=== PATIENT | male | born 1930 | race Caucasian/White ===

== ENCOUNTER → 2017-03-19 | Outpatient (CLI) | payer MEDICARE ==
[2016-08-15 03:00] VITALS: BP 109/51
[~2017-03-19] MED LIST: ACET325T9 PO; ALBU1.25 NEB; AMOX500C PO; ASPI-482 PO; ASPI81TA2 PO; ATOR20TA58 PO; BRIN8DRO OP; CIPR250T30 PO; CIPR500T94 PO; FLUT1DIS3 IH; HYDR-2666 PO; HYDR12.58 PO; IRBE75TA2 PO; METO25TA2 PO; METO25TA4 PO; MULT-246 PO; NAPR500T8 PO; OMEP20CA5 PO; SIMV80TA PO
--- NOTE | 2017-03-19 16:49 | RAD ---
Bilateral duplex carotid sonography History: Right carotid bruit. Comparison: Carotid Doppler 08/19/2010. Duplex sonography of the cervical portion of both carotid arteries was performed. Findings: Right side: Peak systolic flow velocity of the CCA is 76 cm/sec. Peak systolic flow velocity of the ICA is 129 cm/sec. The ICA/CCA ratio is 1.7. Peak end diastolic flow velocity of the ICA is 52 cm/sec. The peak systolic velocity of the ECA is 77 cm/sec. There is extensive calcified atherosclerotic plaquing involving the right common carotid artery extending into the internal and external carotid arteries. No convincing of vascularity is identified in the distal right internal carotid artery, although given the waveform the more proximal internal carotid artery, and it is thought unlikely to be occluded.. Left side: Peak systolic flow velocity of the CCA is 140 cm/sec. Peak systolic flow velocity of the ICA is 261 cm/sec. The ICA/CCA ratio is 1.87. Peak end diastolic flow velocity of the ICA is 10 cm/sec. Peak systolic flow velocity of the ECA is 1:30 cm/sec. Extensive calcified atherosclerotic plaquing is seen involving the entirety of the left carotid system. Vertebral arteries: Bilateral vertebral arteries demonstrate antegrade flow. Impression: 1. Extensive atherosclerotic plaquing is seen involving the right carotid system. By velocities, right internal carotid artery demonstrates moderate (50-69%) luminal diameter stenosis, although by grayscale imaging, stenosis may be greater than that. No convincing Doppler signal seen in the distal right internal carotid artery, although this may be artifact of shadowing plaque as the waveforms of the more proximal internal carotid artery suggest against distal occlusion. 2. Elevated velocity is seen in the left internal carotid artery corresponding to greater than 70% luminal diameter stenosis. A similar degree of stenosis was seen in the comparison study. 3. Confirmation stenosis could be made with CT angiography of the neck. Note: Stenosis calculations for Doppler studies are derived from validated velocity criteria which are known to correlate with NASCET methodology of determining stenosis.
== END | disposition home or self-care (01) ==
LOC: US 12:09
PROVIDERS: ATTEND Family Medicine
DX: G45.9 Transient cerebral ischemic attack, unspecified (principal); R09.89 Other specified symptoms and signs involving the circulatory and respiratory systems
CPT/HCPCS: 93880

== ENCOUNTER → 2017-04-28 | Day surgery (SDC) | payer MEDICARE ==
[~2017-04-28] VITALS: Ht 160 cm; Wt 85.3 kg
[~2017-04-28] MED LIST changes: +ASPI-630 PO; -ASPI81TA2 PO; +DEXT15DR5 EACHEYE; -HYDR-2666 PO; +HYDR-2758 PO; +HYDROmorphone 2 MG/ML VIAL IV PRN; +IV RINGERS,LACTATED 1000ML 1,000 ML IV SCH; +LIDOCAINE 1% 1 ML SYRINGE. ID PRN; +LIDOCAINE 2% PF Vial for OR 5 ML VIAL. ONE; +MORPHINE SULFATE 2 MG/ML DISP.SYRIN. IV PRN; +ONDANSETRON PF 4 MG/2 ML VIAL. IV PRN; +PROCHLORPERAZINE 10 MG/2 ML VIAL. IV PRN; +PROPOFOL 0 ML IV ONE; +fentaNYL PF VIAL 100 MCG/2 ML VIAL IV PRN; +fentaNYL PF VIAL 100 MCG/2 ML VIAL ONE
[2017-04-28 08:12] LABS: BILIRUBIN,URINE MODERATE (NEG); GLUCOSE,URINE NEGATIVE (NEG); NITRITE,URINE NEGATIVE (NEG); PROTEIN,URINE 100 mg/dL (NEG-TRACE); UROBILINOGEN,URINE 0.2 mg/dL (0.2 mg/dL)
[2017-04-28 08:15] VITALS: BP 117/74
[2017-04-28 08:28] LABS: BACTERIA,URINE MANY /HPF (0-FEW); RBC,URINE TNTC /HPF (0-2)
[2017-04-28 08:45] LABS: BASO # 0.1 x10^3/uL (0.0-0.2); BASO % 1 % (0-3); EOS % 3 % (0-3); HEMATOCRIT 34.2 % (39.0-53.0); LYMPH % 12 % (24-48); MEAN CORPUSCULAR HEMOGLOBIN 28 pg (25-35); MEAN CORPUSCULAR HGB CONC 32 g/dL (31-37); MEAN CORPUSCULAR VOLUME 87 fL (79-100); MONO % 6 % (0-9); NEUT % 78 % (31-73); PLATELET COUNT 283 x10^3/uL (140-400); RED BLOOD COUNT 3.93 x10^6/uL (4.30-5.70); RED CELL DISTRIBUTION WIDTH 15.2 % (11.5-14.5); WHITE BLOOD COUNT 8.6 x10^3/uL (4.0-11.0)
[2017-04-28 08:56] LABS: INR 1.2 (0.8-1.1); PROTHROMBIN TIME PATIENT 14.1 SEC (11.7-14.0)
--- NOTE | 2017-04-28 09:44 | PDOC ---
Provider Note Provider Note Urology: Procedure cancelled due to UTI MUNA HERNANDEZ DO Apr 28, 2017 09:44
[2017-04-28 09:45] LABS: CALCIUM 8.9 mg/dL (8.5-10.1); CREATININE 1.7 mg/dL (0.7-1.3); GFR 38.3; POTASSIUM 4.6 mmol/L (3.5-5.1)
== END | disposition home or self-care (01) ==
LOC: SURG 07:35
PROVIDERS: ATTEND Urology
DX: C67.9 Malignant neoplasm of bladder, unspecified (principal); Z53.8 Procedure and treatment not carried out for other reasons; N39.0 Urinary tract infection, site not specified; H40.9 Unspecified glaucoma; K21.9 Gastro-esophageal reflux disease without esophagitis; E78.00 Pure hypercholesterolemia, unspecified; I10 Essential (primary) hypertension; J44.9 Chronic obstructive pulmonary disease, unspecified; M19.90 Unspecified osteoarthritis, unspecified site; Z98.42 Cataract extraction status, left eye; Z98.41 Cataract extraction status, right eye; Z86.69 Personal history of other diseases of the nervous system and sense organs; Z87.442 Personal history of urinary calculi; Z79.01 Long term (current) use of anticoagulants
CPT/HCPCS: 36415; 80048; 81001; 85027; 85610; 85730; 87086; J0690; J2704; J3010

== ENCOUNTER 2017-08-01 00:41 | Emergency (ER) | payer MEDICARE ==
[~2017-08-01] VITALS: Ht 162.6 cm; Wt 88.5 kg
[~2017-08-01 00:41] MED LIST changes: -HYDROmorphone 2 MG/ML VIAL IV PRN; -IV RINGERS,LACTATED 1000ML 1,000 ML IV SCH; -LIDOCAINE 1% 1 ML SYRINGE. ID PRN; -LIDOCAINE 2% PF Vial for OR 5 ML VIAL. ONE; -MORPHINE SULFATE 2 MG/ML DISP.SYRIN. IV PRN; -ONDANSETRON PF 4 MG/2 ML VIAL. IV PRN; -PROCHLORPERAZINE 10 MG/2 ML VIAL. IV PRN; -PROPOFOL 0 ML IV ONE; -fentaNYL PF VIAL 100 MCG/2 ML VIAL IV PRN; -fentaNYL PF VIAL 100 MCG/2 ML VIAL ONE
[2017-08-01 00:55] LABS: BASO % 0 % (0-3); EOS % 0 % (0-3); HEMATOCRIT 27.2 % (39.0-53.0); HEMOGLOBIN 8.4 g/dL (13.0-17.5); LYMPH # 1.1 x10^3/uL (1.0-4.8); LYMPH % 7 % (24-48); MEAN CORPUSCULAR HEMOGLOBIN 26 pg (25-35); MEAN CORPUSCULAR HGB CONC 31 g/dL (31-37); MEAN CORPUSCULAR VOLUME 85 fL (79-100); MONO % 7 % (0-9); NEUT % 86 % (31-73); PLATELET COUNT 251 x10^3/uL (140-400); RED CELL DISTRIBUTION WIDTH 15.9 % (11.5-14.5); WHITE BLOOD COUNT 15.3 x10^3/uL (4.0-11.0)
--- NOTE | 2017-08-01 00:56 | PHYS DOC ---
Past Medical History Past Medical History: CAD, Cancer, COPD, Hypertension Past Surgical History: Cancer Surgery, Other Additional Past Surgical Histo: cardiac stents placed, skin cancer surgery Alcohol Use: None Drug Use: None Adult General Chief Complaint Chief Complaint: MECHANICAL FALL HPI HPI Patient is a 86 year old F who presents with fall. Patient has a history of bladder cancer and just released from [facility] and has fallen multiple times today. Family called EMS because patient fell tonight and was unable to get up. Family states patient was altered and confused. Patient denies hitting his head or have loss of consciousness. Patient denies any fevers. 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 Patient's only complaint is right upper quadrant pain with no associated nausea or vomiting. Review of Systems Review of Systems GEN: Weakness HEENT: Denies blurred vision, sore throat CV: Denies chest pain RESP: Denies shortness of air, cough GI: Right upper quadrant pain NEURO: Denies confusion, dizziness MSK: Denies weakness, joint pain/swelling Current Medications Current Medications Current Medications Medications (Trade) Dose Ordered Sig/Letitia Start Time Stop Time Status Last Admin Dose Admin Ceftriaxone Sodium 50 ml @ 100 mls/hr 1X ONCE 08/01/17 02:45 08/01/17 03:14 08/01/17 02:56 100 MLS/HR Allergies Allergies Allergies Coded Allergies Type Severity Reaction Last Updated Verified aspirin Allergy Intermediate Tear up stomach ( burning feeling) d/t hx ulcer Yes Physical Exam Physical Exam GEN.: No apparent distress. Alert and oriented. HEENT: Head is normocephalic, atraumatic NECK: Supple. LUNGS: CTAB. HEART: RRR, S1, S2 present. Peripheral pulses intact ABDOMEN: Soft, tenderness to palpation right upper quadrant, no rebound tenderness, no abdominal distention. Positive bowel sounds. EXTREMITIES: Without any cyanosis. NEUROLOGIC: Normal speech, normal tone PSYCHIATRIC: Normal affect, normal mood. SKIN: No ulcerations Current Patient Data Vital Signs Vital Signs Date Time Temp Pulse Resp B/P (MAP) Pulse Ox O2 Delivery O2 Flow Rate FiO2 08/01/17 00:41 98.0 83 18 159/70 (99) 96 Room Air 98.0 Lab Values Laboratory Tests Test 08/01/17 00:48 08/01/17 01:50 White Blood Count 15.3 x10^3/uL (4.0-11.0) H Red Blood Count 3.20 x10^6/uL (4.30-5.70) L Hemoglobin 8.4 g/dL (13.0-17.5) L Hematocrit 27.2 % (39.0-53.0) L Mean Corpuscular Volume 85 fL (79-100) Mean Corpuscular Hemoglobin 26 pg (25-35) Mean Corpuscular Hemoglobin Concent 31 g/dL (31-37) Red Cell Distribution Width 15.9 % (11.5-14.5) H Platelet Count 251 x10^3/uL (140-400) Neutrophils (%) (Auto) 86 % (31-73) H Lymphocytes (%) (Auto) 7 % (24-48) L Monocytes (%) (Auto) 7 % (0-9) Eosinophils (%) (Auto) 0 % (0-3) Basophils (%) (Auto) 0 % (0-3) Neutrophils # (Auto) 13.1 x10^3uL (1.8-7.7) H Lymphocytes # (Auto) 1.1 x10^3/uL (1.0-4.8) Monocytes # (Auto) 1.0 x10^3/uL (0.0-1.1) Eosinophils # (Auto) 0.0 x10^3/uL (0.0-0.7) Basophils # (Auto) 0.0 x10^3/uL (0.0-0.2) Platelet Estimate Pending Sodium Level 141 mmol/L (136-145) Potassium Level 4.3 mmol/L (3.5-5.1) Chloride Level 105 mmol/L (98-107) Carbon Dioxide Level 23 mmol/L (21-32) Anion Gap 13 (6-14) Blood Urea Nitrogen 38 mg/dL (8-26) H Creatinine 1.9 mg/dL (0.7-1.3) H Estimated GFR (Cockcroft-Gault) 33.7 BUN/Creatinine Ratio 20 (6-20) Glucose Level 109 mg/dL (70-99) H Calcium Level 8.8 mg/dL (8.5-10.1) Total Bilirubin 0.5 mg/dL (0.2-1.0) Aspartate Amino Transferase (AST) 27 U/L (15-37) Alanine Aminotransferase (ALT) 25 U/L (16-63) Alkaline Phosphatase 56 U/L (46-116) Total Protein 6.0 g/dL (6.4-8.2) L Albumin 3.1 g/dL (3.4-5.0) L Albumin/Globulin Ratio 1.1 (1.0-1.7) Lipase 86 U/L (73-393) Urine Collection Type Unknown Urine Color [place] Urine Clarity Turbid Urine pH 5.5 Urine Specific [place] 1.015 Urine Protein 100 mg/dL (NEG-TRACE) Urine Glucose (UA) Negative mg/dL (NEG) Urine Ketones (Stick) Negative mg/dL (NEG) Urine Blood Large (NEG) Urine Nitrite Positive (NEG) Urine Bilirubin Negative (NEG) Urine Urobilinogen Dipstick 0.2 mg/dL (0.2 mg/dL) Urine Leukocyte Esterase Large (NEG) Urine RBC Tntc /HPF (0-2) Urine WBC Tntc /HPF (0-4) Urine Squamous Epithelial Cells Occ /LPF Urine Renal Epithelial Cells Occ /LPF Urine Bacteria Moderate /HPF (0-FEW) Urine Hyaline Casts Moderate /HPF Urine Mucus Mod /LPF Laboratory Tests 08/01/17 00:48 Laboratory Tests 08/01/17 00:48 EKG EKG [] Radiology/Procedures Radiology/Procedures CT scan abdomen pelvis: IMPRESSION: 1. Limited assessment of solid organ structures and vasculature secondary to lack of intravenous contrast. Within the limits of the exam there is not definite intra-abdominal hemorrhage. 2. Wall thickening of the urinary bladder with adjacent edema. There is also edema seen extending adjacent to the left greater than right ureter. Would clinically for possible causes such as infection although given the bladder wall thickening other causes such as neoplastic etiology is not excluded and either a follow-up exam or urologic consultation could be obtained to further evaluate if not already obtained. 3. Severe calcific atherosclerosis. 4. Couple of small lung nodules measuring less than 4 mm.[] Course & Med Decision Making Course & Med Decision Making Pertinent Labs and Imaging studies reviewed. (See chart for details) ED course: Patient was seen and examined emergency room abdominal workup along with a CT scan abdomen and pelvis were ordered 0230: Patient was updated on lab results and CT findings. Daughter states his pre-operative hemoglobin was 10.5 however did not know what his postoperative hemoglobin was. Daughter states he was not sent home on antibiotics. Daughter states when he becomes altered he usually has a UTI. 0248: transfer center was contacted and case was discussed and they will contact urology and call back. 0306: Discussed CC/HP/PMH with Dr. Hare and recommends admit to and will accept transfer 0310: Discussed plan with patient and family who are comfortable being transferred back to by EMS [] Dragon Disclaimer Dragon Disclaimer This electronic medical record was generated, in whole or in part, using a voice recognition dictation system. Departure Departure Impression: Primary Impression: Anemia Additional Impressions: Hematuria UTI (urinary tract infection) Bladder cancer Altered mental status Disposition: 02 TRANSFER [facility] (Dr. Bryce Hrae accepting) Condition: STABLE Referrals: HILARIO DAVIS MD (PCP) Problem Qualifiers RACQUEL BOSTON DO Aug 01, 2017 00:56
[2017-08-01 01:06] LABS: CALCIUM 8.8 mg/dL (8.5-10.1); CREATININE 1.9 mg/dL (0.7-1.3); GFR 33.7; POTASSIUM 4.3 mmol/L (3.5-5.1)
[2017-08-01 01:12] LABS: ALBUMIN 3.1 g/dL (3.4-5.0); ALBUMIN/GLOBULIN RATIO 1.1 (1.0-1.7); TOTAL BILIRUBIN 0.5 mg/dL (0.2-1.0)
[2017-08-01 02:09] LABS: BILIRUBIN,URINE NEGATIVE (NEG); GLUCOSE,URINE NEGATIVE (NEG); NITRITE,URINE POSITIVE (NEG); PH,URINE 5.5; PROTEIN,URINE 100 mg/dL (NEG-TRACE); UROBILINOGEN,URINE 0.2 mg/dL (0.2 mg/dL)
[2017-08-01 02:17] LABS: RBC,URINE TNTC /HPF (0-2); WBC,URINE TNTC /HPF (0-4)
[2017-08-01 02:18] LABS: BACTERIA,URINE MODERATE /HPF (0-FEW)
[2017-08-01 02:19] LABS: SQUAMOUS EPITHELIAL CELL,UR OCC /LPF
--- NOTE | 2017-08-01 02:27 | RAD ---
INDICATION: ruq pain after fall x tonight COMPARISON: None. TECHNIQUE: Axial CT images were obtained through the abdomen and pelvis without intravenous contrast. Limited assessment of solid organ structures and vasculature secondary to lack of intravenous contrast. One or more of the following individualized dose reduction techniques were utilized for this examination: 1. Automated exposure control; 2. Adjustment of the mA and/or kV according to patient size; 3. Use of iterative reconstruction technique. FINDINGS: There are couple of pulmonary nodules at the lung bases which are sub-4 mm in size. Coronary artery calcific atherosclerosis. Moderate hiatal hernia. Severe calcific atherosclerosis. Fat-containing inguinal hernias. No intrahepatic bile duct dilation. No definite perihepatic hemorrhage. Very limited assessment of pancreas without contrast but no definite peripancreatic hemorrhage or edema. Splenic calcified granulomas. Calcified granulomas of spleen without definite perisplenic hemorrhage. No evidence of perirenal hemorrhage or hydronephrosis. At the left flank posteriorly or laterally there is a fat containing structure within the musculature measuring up to 50 x 22 mm. Could be from causes such as lipoma. Bladder is partially distended with wall appearing mildly thickened with adjacent edema. There is some edema seen adjacent to left ureter distally as well. Colonic diverticulosis. Appendix does not appear grossly inflamed. No dilated loops of bowel to suggest obstruction. Degenerative changes of spine. IMPRESSION: 1. Limited assessment of solid organ structures and vasculature secondary to lack of intravenous contrast. Within the limits of the exam there is not definite intra-abdominal hemorrhage. 2. Wall thickening of the urinary bladder with adjacent edema. There is also edema seen extending adjacent to the left greater than right ureter. Would clinically for possible causes such as infection although given the bladder wall thickening other causes such as neoplastic etiology is not excluded and either a follow-up exam or urologic consultation could be obtained to further evaluate if not already obtained. 3. Severe calcific atherosclerosis. 4. Couple of small lung nodules measuring less than 4 mm. Fleischner Society recommendations for solitary solid lung nodule follow up.: In a low risk patient: <6mm - No follow up required. 6-8mm - 6-[address], then CT at 18-24 months. >8mm - CT at 3 months, PET/CT or tissue sampling. In a high risk patient (history of smoking or other known risk factors): <6mm - Follow up CT at 12 months. 6-8mm - 6-[address], then CT at 18-24 months. >8mm - CT at 3 months, PET/CT or tissue sampling. Fleischner Society recommendations for multiple solid lung nodule follow up.: In a low risk patient: <6mm - No follow up required. 6-8mm - 3-[address], then CT at 18-24 months. >8mm - CT at 3-6 months, then at 18-24 months. PET/CT or tissue sampling based on most suspicious nodule. In a high risk patient (history of smoking or other known risk factors): <6mm - Follow up CT at 12 months. 6-8mm - 3-[address], then CT at 18-24 months. >8mm - CT at 3-6 months, PET/CT or tissue sampling option based on most suspicious nodule. Electronically signed by: Giancarlo Chou MD (08/01/2017 2:24 AM) [facility]
[2017-08-01] MEDS ORDERED: IV NORMAL SALINE 1000ML BAG 1,000 ML IV ONE (03:15)
[2017-08-01 04:10] VITALS: BP 178/76
[2017-08-01 04:23] LABS: % EOS 1 % (0-5); PLT ESTIMATE ADEQUATE (ADEQUATE)
== END 2017-08-01 04:30 | disposition short-term general hospital (02) ==
LOC: ER 00:41
DX: R41.82 Altered mental status, unspecified (principal); D64.9 Anemia, unspecified; R10.11 Right upper quadrant pain; N39.0 Urinary tract infection, site not specified; C67.9 Malignant neoplasm of bladder, unspecified; I10 Essential (primary) hypertension; I25.10 Atherosclerotic heart disease of native coronary artery without angina pectoris; J44.9 Chronic obstructive pulmonary disease, unspecified; Z95.5 Presence of coronary angioplasty implant and graft; Z88.6 Allergy status to analgesic agent; W18.39XA Other fall on same level, initial encounter; Y93.89 Activity, other specified; Y92.89 Other specified places as the place of occurrence of the external cause; Y99.8 Other external cause status
CPT/HCPCS: 36415; 74176; 80053; 81001; 83605; 83690; 85007; 85025; 87040; 87086; 96365; 99285; J0690; J7030

== ENCOUNTER → 2017-12-10 | Outpatient (CLI) | payer MEDICARE ==
[~2017-12-10] MED LIST changes: -ACET325T9 PO; -ALBU1.25 NEB; -AMOX500C PO; -ASPI-482 PO; -ASPI-630 PO; -ATOR20TA58 PO; -BRIN8DRO OP; -CIPR250T30 PO; -CIPR500T94 PO; -DEXT15DR5 EACHEYE; -FLUT1DIS3 IH; -HYDR-2758 PO; -HYDR12.58 PO; +IOHEXOL 180 MG/ML 10 ML VIAL.; -IRBE75TA2 PO; -METO25TA2 PO; -METO25TA4 PO; -MULT-246 PO; -NAPR500T8 PO; -OMEP20CA5 PO; -SIMV80TA PO; +methylPREDNISolone ACETATE 40 MG/ML VIAL.; +methylPREDNISolone ACETATE 80 MG/ML VIAL.
== END | disposition home or self-care (01) ==
LOC: ECHO 08:09
DX: I25.10 Atherosclerotic heart disease of native coronary artery without angina pectoris (principal); J44.9 Chronic obstructive pulmonary disease, unspecified; I51.7 Cardiomegaly
CPT/HCPCS: 93306; J1030; J1040

== ENCOUNTER 2018-03-15 18:23 | Inpatient (IN) | payer MEDICARE ==
[2018-03-15 20:11] LABS: ADD MAN DIFF? NO
[2018-03-15] MEDS: IV NORMAL SALINE 1000ML BAG 1,000 ML IV (20:12)
[2018-03-15 20:13] LABS: BASO % 0 % (0-3); EOS # 0.1 x10^3/uL (0.0-0.7); EOS % 1 % (0-3); HEMATOCRIT 31.8 % (39.0-53.0); HEMOGLOBIN 10.5 g/dL (13.0-17.5); LYMPH # 0.8 x10^3/uL (1.0-4.8); LYMPH % 7 % (24-48); MEAN CORPUSCULAR HEMOGLOBIN 28 pg (25-35); MEAN CORPUSCULAR HGB CONC 33 g/dL (31-37); MEAN CORPUSCULAR VOLUME 85 fL (79-100); MONO # 1.1 x10^3/uL (0.0-1.1); MONO % 10 % (0-9); NEUT # 9.3 x10^3uL (1.8-7.7); NEUT % 82 % (31-73); PLATELET COUNT 262 x10^3/uL (140-400); RED BLOOD COUNT 3.74 x10^6/uL (4.30-5.70); RED CELL DISTRIBUTION WIDTH 18.5 % (11.5-14.5); WHITE BLOOD COUNT 11.4 x10^3/uL (4.0-11.0)
[2018-03-15 20:22] LABS: ANION GAP 9 (6-14); BLOOD UREA NITROGEN 31 mg/dL (8-26); BUN/CREATININE RATIO 19 (6-20); CARBON DIOXIDE 27 mmol/L (21-32); CHLORIDE 104 mmol/L (98-107); CREATININE 1.6 mg/dL (0.7-1.3); GLUCOSE 123 mg/dL (70-99); POTASSIUM 4.7 mmol/L (3.5-5.1); SODIUM 140 mmol/L (136-145)
[2018-03-15 20:28] LABS: ALBUMIN 2.8 g/dL (3.4-5.0); ALBUMIN/GLOBULIN RATIO 0.7 (1.0-1.7); ALK PHOS 74 U/L (46-116); ALT (SGPT) 13 U/L (16-63); AST (SGOT) 14 U/L (15-37); TOTAL PROTEIN 6.9 g/dL (6.4-8.2)
[2018-03-15 20:34] LABS: TROPONINI < 0.017 ng/mL (0.000-0.055)
[2018-03-15 21:04] LABS: BILIRUBIN,URINE NEGATIVE (NEG); COLOR,URINE YELLOW; GLUCOSE,URINE NEGATIVE (NEG); NITRITE,URINE NEGATIVE (NEG); PROTEIN,URINE 100 mg/dL (NEG-TRACE); UROBILINOGEN,URINE 0.2 mg/dL (0.2 mg/dL)
[2018-03-15 21:09] LABS: CLARITY,URINE CLOUDY
[2018-03-15 21:12] LABS: BACTERIA,URINE FEW /HPF (0-FEW); WBC,URINE TNTC /HPF (0-4)
[2018-03-15] MEDS ORDERED: ONDANSETRON PF 4 MG/2 ML VIAL. IV (22:00)
[2018-03-15] MEDS: MORPHINE SULFATE 4 MG/ML DISP.SYRIN. IV (23:43)
[2018-03-16] MEDS: IV NORMAL SALINE 1000ML BAG 1,000 ML IV ×2 (00:36→04:40)
[2018-03-16] MEDS ORDERED: ALBUTEROL SULFATE 2.5 MG/3 ML NEBU. NEB (08:45)
[2018-03-16] MEDS: PANTOPRAZOLE 40 MG TABLET.DR. PO (10:07)
[2018-03-16] MEDS: POLYVINYL ALCOHOL 1.4% OPHTH SOLUTION 15ML BOTTLE. OU ×4 (10:08→20:36)
[2018-03-16] MEDS: LOSARTAN POTASSIUM 25 MG TABLET. PO (10:08)
[2018-03-16] MEDS: ASPIRIN ENTERIC COATED 81 MG TABLET.DR. PO (10:08)
[2018-03-16] MEDS ORDERED: LIDOCAINE WITH 8.4% SOD BICARB 3 ML DISP.SYRIN. (15:30)
[2018-03-16] MEDS: LIDOCAINE WITH 8.4% SOD BICARB 3 ML DISP.SYRIN. INJ (16:06)
[2018-03-16] MEDS: POTASSIUM CL 20MEQ D5-0.45NACL 1,000 ML IV ×2 (17:35→19:00)
[2018-03-16] MEDS: ACETAMINOPHEN 325 MG TABLET. PO (17:40)
[2018-03-16] MEDS: ATORVASTATIN CALCIUM 20 MG TABLET PO (20:36)
[2018-03-16] MEDS: cefTRIAXone IV Push 1 GM VIAL. IVP (22:33)
[2018-03-17] MEDS: POTASSIUM CL 20MEQ D5-0.45NACL 1,000 ML IV ×2 (05:31→13:23)
[2018-03-17] MEDS: POLYVINYL ALCOHOL 1.4% OPHTH SOLUTION 15ML BOTTLE. OU ×4 (09:00→20:22)
[2018-03-17] MEDS: ASPIRIN ENTERIC COATED 81 MG TABLET.DR. PO (09:54)
[2018-03-17] MEDS: PANTOPRAZOLE 40 MG TABLET.DR. PO (09:55)
[2018-03-17] MEDS: LOSARTAN POTASSIUM 25 MG TABLET. PO (09:55)
[2018-03-17 11:45] LABS: SEDIMENTATION RATE 93 (0-15)
[2018-03-17] MEDS: ACETAMINOPHEN 325 MG TABLET. PO ×2 (13:10→22:09)
[2018-03-17] MEDS: LACTOBACILLUS RHAMNOSUS GG 1 CAPSULE. PO (20:22)
[2018-03-17] MEDS: cefTRIAXone IV Push 1 GM VIAL. IVP (20:22)
[2018-03-17] MEDS: ATORVASTATIN CALCIUM 20 MG TABLET PO (20:22)
[2018-03-18] MEDS: POTASSIUM CL 20MEQ D5-0.45NACL 1,000 ML IV ×3 (00:27→21:46)
[2018-03-18 06:17] LABS: ANION GAP 9 (6-14); BLOOD UREA NITROGEN 16 mg/dL (8-26); CALCIUM 8.2 mg/dL (8.5-10.1); CARBON DIOXIDE 24 mmol/L (21-32); CHLORIDE 109 mmol/L (98-107); CREATININE 1.2 mg/dL (0.7-1.3); GFR 57.1; GLUCOSE 123 mg/dL (70-99); POTASSIUM 4.1 mmol/L (3.5-5.1); SODIUM 142 mmol/L (136-145)
[2018-03-18] MEDS: methylPREDNISolone ACETATE 40 MG/ML VIAL. INJ (08:15)
[2018-03-18] MEDS: LIDOCAINE 1%/EPI 1:100,000 20 ML VIAL. INJ (08:15)
[2018-03-18] MEDS: PANTOPRAZOLE 40 MG TABLET.DR. PO (08:53)
[2018-03-18] MEDS: LACTOBACILLUS RHAMNOSUS GG 1 CAPSULE. PO ×2 (08:53→21:47)
[2018-03-18] MEDS: ASPIRIN ENTERIC COATED 81 MG TABLET.DR. PO (08:53)
[2018-03-18] MEDS: POLYVINYL ALCOHOL 1.4% OPHTH SOLUTION 15ML BOTTLE. OU ×4 (08:54→21:00)
[2018-03-18] MEDS: LOSARTAN POTASSIUM 25 MG TABLET. PO (08:54)
[2018-03-18] MEDS: FLUCONAZOLE 100 MG TABLET. PO (09:01)
[2018-03-18] MEDS: IPRATRPIUM/ALBUTEROL 0.5/2.5MG 3 ML NEBU. NEB ×2 (11:28→20:26)
[2018-03-18] MEDS: DOCUSATE SODIUM 100 MG CAPSULE. PO ×2 (12:05→21:47)
[2018-03-18] MEDS: oxyCODONE/APAP 5/325 1 TAB TABLET PO (18:28)
[2018-03-18] MEDS: ATORVASTATIN CALCIUM 20 MG TABLET PO (21:47)
[2018-03-18] MEDS: TIMOLOL 0.5% OPHTH SOLUTION 5ML BOTTLE. OS (21:51)
[2018-03-18] MEDS: BRIMONIDINE 0.2% OPHTH SOLUTION 5ML BOTTLE. OS (21:51)
[2018-03-19] MEDS: PANTOPRAZOLE 40 MG TABLET.DR. PO (07:44)
[2018-03-19] MEDS: POTASSIUM CL 20MEQ D5-0.45NACL 1,000 ML IV (07:48)
[2018-03-19] MEDS: IPRATRPIUM/ALBUTEROL 0.5/2.5MG 3 ML NEBU. NEB (07:56)
[2018-03-19] MEDS ORDERED: DOCUSATE SODIUM 100 MG CAPSULE. PO (09:00)
[2018-03-19] MEDS: LOSARTAN POTASSIUM 25 MG TABLET. PO (09:05)
[2018-03-19] MEDS: DOCUSATE SODIUM 100 MG CAPSULE. PO (09:05)
[2018-03-19] MEDS: FLUCONAZOLE 100 MG TABLET. PO (09:05)
[2018-03-19] MEDS: LACTOBACILLUS RHAMNOSUS GG 1 CAPSULE. PO (09:05)
[2018-03-19] MEDS: ASPIRIN ENTERIC COATED 81 MG TABLET.DR. PO (09:05)
[2018-03-19] MEDS: BRIMONIDINE 0.2% OPHTH SOLUTION 5ML BOTTLE. OS (09:05)
[2018-03-19] MEDS: POLYVINYL ALCOHOL 1.4% OPHTH SOLUTION 15ML BOTTLE. OU (09:05)
[2018-03-19] MEDS: TIMOLOL 0.5% OPHTH SOLUTION 5ML BOTTLE. OS (09:06)
[2018-03-19] MEDS ORDERED: GENTAMICIN 0.1% TOPICAL OINTMENT 15GM TUBE. TP (12:00)
== END 2018-03-19 13:06 | DRG 689 ==
LOC: ER 18:23 → 6 SOUTH 21:46
PROC: 02HV33Z Insertion of Infusion Device into Superior Vena Cava, Percutaneous Approach (ICD-10-PCS; principal; 2018-03-16)
PROC: B5181ZA Fluoroscopy of Superior Vena Cava using Low Osmolar Contrast, Guidance (ICD-10-PCS; 2018-03-16)
PROC: B548ZZA Ultrasonography of Superior Vena Cava, Guidance (ICD-10-PCS; 2018-03-16)
PROC: 0S9C3ZZ Drainage of Right Knee Joint, Percutaneous Approach (ICD-10-PCS; 2018-03-19)
DX: N39.0 Urinary tract infection, site not specified (principal); N17.0 Acute kidney failure with tubular necrosis; E44.0 Moderate protein-calorie malnutrition; B49 Unspecified mycosis; E86.0 Dehydration; C67.9 Malignant neoplasm of bladder, unspecified; M10.9 Gout, unspecified; E66.9 Obesity, unspecified; I25.10 Atherosclerotic heart disease of native coronary artery without angina pectoris; M65.9 Synovitis and tenosynovitis, unspecified; Z66 Do not resuscitate; Z51.5 Encounter for palliative care; Z85.830 Personal history of malignant neoplasm of bone; Z85.51 Personal history of malignant neoplasm of bladder; Z85.828 Personal history of other malignant neoplasm of skin; Z95.5 Presence of coronary angioplasty implant and graft; Z92.3 Personal history of irradiation; Z88.6 Allergy status to analgesic agent; Z79.899 Other long term (current) drug therapy; Z68.28 Body mass index [BMI] 28.0-28.9, adult
CPT/HCPCS: 36415; 36569; 70450; 71045; 73562; 76937; 77001; 80048; 80053; 81001; 84484; 84550; 85025; 85651; 87040; 87071; 87075; 87086; 87205; 89060; 93005; 94640; 94760; 96365; 96366; 96375; 97110-GP; 97162-GP; 97530-GP; 99285; 99285-25; C1751; C1892; J0690; J0696; J1030; J2270; J3490; J7030; J7620